=== PATIENT | female | born 1965 | race Caucasian/White ===

== ENCOUNTER 2018-02-09 09:01 | Emergency (ER) | payer BC ==
--- NOTE | 2018-02-09 09:49 | Emergency Department Record ---
History of Present Illness - General Chief complaint: ENT Stated complaint: SORE THROAT,BODY ACHES,EARS HURT Time Seen by Provider: 02/09/18 09:18 Source: Patient Mode of Arrival: Ambulatory Limitations: No limitations - History of Present Illness Initial comments: The patient is here due to a 3-[address] and ear pain. She just flew on a plane with her ill sister and arrived here at [place] from [facility] 4 days ago. Since she has had the ST with ear pain and a mild dry cough. There has been no reported Cp, fever, SOB, or TOM. MD complaint: Sore throat, Other Onset/Timin -: Days(s) Location: Throat Severity: Moderate Severity scale (1-10): 8 Improves with: None Worsens with: Eating, Swallowing Associated Symptoms: Sore throat - Related Data Home Medications Medication Instructions Recorded Confirmed Last Taken Amlodipine Besylate [Norvasc] 2.5 mg PO DAILY 02/09/18 02/09/18 02/09/18 Aspirin 325 mg PO DAILY 02/09/18 02/09/18 02/09/18 Buspirone HCl [Buspar] 10 mg PO DAILY 02/09/18 02/09/18 02/08/18 Diclofenac Sodium 75 mg PO DAILY 02/09/18 02/09/18 02/09/18 Famotidine [Pepcid] 20 mg PO DAILY 02/09/18 02/09/18 02/09/18 Oxycodone HCl/Acetaminophen 1 tab PO ASDIR 02/09/18 02/09/18 Unknown [Percocet 7.5mg/325mg] Pregabalin [Lyrica] 50 mg PO DAILY 02/09/18 02/09/18 02/09/18 Tizanidine HCl [Zanaflex] 4 mg PO ASDIR 02/09/18 02/09/18 02/09/18 Trazodone HCl 100 mg PO DAILY 02/09/18 02/09/18 02/08/18 Venlafaxine HCl [Effexor Xr] 150 mg PO DAILY 02/09/18 02/09/18 02/09/18 Previous Rx's Medication Instructions Recorded Cetirizine HCl/Pseudoephedrine 1 each PO BID #14 tab.er.12h 02/09/18 [Zyrtec-D Tablet] Fluticasone Propionate [Flonase] 2 spray EACH NARES DAILY #1 bottle 02/09/18 Prednisone [Prednisone 20Mg] 40 mg PO DAILY #10 tab 02/09/18 Allergies Allergy/AdvReac Type Severity Reaction Status Date / Time morphine Allergy ITCHING Verified 02/09/18 09:27 Travel Screening - Travel/Exposure Within Last 30 Days Have you traveled within the last 30 days?: Yes Location Detail:: [place] - Travel/Exposure Within Last Year Have you traveled outside the [place] in the last year?: No - Additonal Travel Details Have you been exposed to anyone with a communicable illness?: No - Travel Symptoms Symptom Screening: None Review of Systems Constitutional: Reports: Malaise. Denies: Chills, Fever Eyes: Denies: Eye discharge ENT: Reports: Throat pain. Denies: Congestion Respiratory: Denies: Cough, Dyspnea Past Medical History - SOCIAL HISTORY Smoking Status: Former smoker Alcohol Use: None Drug Use: None - RESPIRATORY Hx Respiratory Disorders: Yes Hx Bronchitis: Yes Hx Pneumonia: Yes - CARDIOVASCULAR Hx Cardio Disorders: Yes Hx Hypertension: Yes - NEURO Hx Neuro Disorders: No - GI Hx GI Disorders: Yes Hx Reflux: Yes - Hx Genitourinary Disorders: No - ENDOCRINE Hx Endocrine Disorders: No - MUSCULOSKELETAL Hx Musculoskeletal Disorders: Yes Hx Fibromyalgia: Yes - PSYCH Hx Psych Problems: Yes Hx Anxiety: Yes Hx Depression: Yes - HEMATOLOGY/ONCOLOGY Hx Hematology/Oncology Disorders: No Family Medical History Any Significant Family History?: No Physical Exam - General General Appearance: Alert, Oriented x3, Cooperative, No acute distress - Head Head exam: Atraumatic, Normocephalic, Normal inspection - Eye Eye exam: Normal appearance, PERRL, EOMI - ENT ENT exam: TM's normal bilaterally. negative: Normal exam Throat exam: Tonsillar erythema. negative: Normal inspection, Tonsillomegaly, Tonsillar exudate, R peritonsillar mass, L peritonsillar mass - Neck Neck exam: Normal inspection, Full ROM. negative: Lymphadenopathy, Meningismus , Tenderness - Respiratory Respiratory exam: Normal lung sounds bilaterally. negative: Respiratory distress - Cardiovascular Cardiovascular Exam: Regular rate, Normal rhythm, Normal heart sounds - GI/Abdominal GI/Abdominal exam: Soft, Normal bowel sounds. negative: Tenderness - Extremities Extremities exam: Normal inspection, Full ROM, Normal capillary refill. negative: Tenderness - Neurological Neurological exam: Alert, Normal gait. negative: Abnormal gait, Motor sensory deficit - Psychiatric Psychiatric exam: Anxious Course Vital Signs 02/09/18 09:36 Temperature 99.4 F Pulse Rate 72 Respiratory 16 Rate Blood Pressure 111/77 Pulse Ox 98 - Reevaluation(s) Reevaluation #1: I did discuss the neg Strep test and the need for F/U if not better in 1-2 weeks. 02/09/18 10:10 Disposition Disposition: Discharge Clinical Impression: URI (upper respiratory infection) Qualifiers: URI type: unspecified URI Qualified Code(s): J06.9 - Acute upper respiratory infection, unspecified Disposition: Home, Self-Care Condition: (2) Stable Instructions: Cold Symptoms (ED) Additional Instructions: Please take the Prednisone with the Flonase and Zyrtec-D. Please see a doctor in an urgent care if not better in 1-2 weeks. Return to the ER for any worsening symptoms. Prescriptions: Cetirizine HCl/Pseudoephedrine [Zyrtec-D Tablet] 1 each PO BID #14 tab.er.12h Fluticasone Propionate [Flonase] 2 spray EACH NARES DAILY #1 bottle Prednisone [Prednisone 20Mg] 40 mg PO DAILY #10 tab Forms: Patient Portal Access Time of Disposition: 10:12 Quality - Quality Measures Quality Measures: N/A - Blood Pressure Screening View Details: Yes Does Patient Have Any of the Following: No Blood Pressure Classification: Normal BP Reading Systolic Measurement: 111 Diastolic Measurement: 77 Screening for High Blood Pressure: < Normal BP, F/U Not Required > [[id number]]
== END 2018-02-09 10:21 | disposition home or self-care (01) ==
LOC: ER 09:01
DX: J06.9 Acute upper respiratory infection, unspecified (principal); J02.9 Acute pharyngitis, unspecified; Z87.891 Personal history of nicotine dependence
CPT/HCPCS: 87880; 99282